=== PATIENT | female | born 1945 | race African-American/Black ===

== ENCOUNTER 2018-10-10 06:49 | Emergency (ER) | payer BC ==
[~2018-10-10] VITALS: Ht 160 cm; Wt 57.2 kg
[2018-10-10 06:57] VITALS: BP 149/86
[2018-10-10] MEDS: KETOROLAC 60 MG/2 ML VIAL IM ONE (08:40)
[2018-10-10 08:51] VITALS: BP 140/84
== END 2018-10-10 08:51 | disposition home or self-care (01) ==
LOC: MED 06:49
DX: S16.1XXA Strain of muscle, fascia and tendon at neck level, initial encounter (principal); M54.12 Radiculopathy, cervical region; R03.0 Elevated blood-pressure reading, without diagnosis of hypertension; F17.210 Nicotine dependence, cigarettes, uncomplicated; X58.XXXA Exposure to other specified factors, initial encounter; Y93.89 Activity, other specified; Y92.89 Other specified places as the place of occurrence of the external cause; Y99.8 Other external cause status
CPT/HCPCS: 72040; 73030; 93005; 96372; 99284; J1885

== ENCOUNTER 2019-08-17 04:37 | Inpatient (IN) | payer BC ==
[~2019-08-17] VITALS: Ht 160 cm; Wt 61.2 kg
[2019-08-17 04:49] VITALS: BP 116/67
--- NOTE | 2019-08-17 04:49 | NUR ---
PT TAKEN TO BED 06 VIA WC.
--- NOTE | 2019-08-17 05:00 | NUR ---
PT CAME TO ER C/O LOWER ABDOMINAL PAIN X 3 DAYS. PT PAIN LEVEL 10/10, SHARP CONSTANT PAIN THAT RADIATES TO THE RIGHT SIDE OF HER BACK. BOWEL SOUNDS ACTIVE X 4 QUADRANTS. ABDOMEN IS FIRM AND TENDER TO TOUCH. PT DENIES N/V/D. LAST BM 08/15/19. ALLERGIES: PENICILLIN MED HX: NONE. SAFETY MEASURES IN PLACE. WAITING FOR ERMD TO EVALUATE PT.
[2019-08-17] MEDS ORDERED: MORPHINE SULFATE 4 MG/ML SYR IVP ONE (05:20)
[2019-08-17 05:55] LABS: HEMOGLOBIN 13.7 g/dL (12.0-16.0); MEAN CORPUSCULAR HEMOGLOBIN 26 pg (27-31); MEAN CORPUSCULAR HGB CONC 32 g/dL (33-37); MEAN CORPUSCULAR VOLUME 82.4 fL (80-94); PLATELET COUNT (AUTO) 140 K/uL (140-450); RED BLOOD CELL COUNT(AUTO) 5.21 MIL/uL (4.20-5.40); RED CELL DISTRIBUTION WIDTH 15.9 % (11.6-13.7); WHITE BLOOD COUNT (AUTO) 22.4 K/uL (4.8-10.8)
[2019-08-17 05:58] LABS: ANION GAP 15.5 (8-16); CARBON DIOXIDE 25.4 mmol/L (21-32); CHLORIDE 98 mmol/L (98-107); CREATININE 1.3 mg/dL (0.6-1.3); GLUCOSE 126 mg/dL (74-106); POTASSIUM 3.9 mmol/L (3.5-5.1); SODIUM SERUM 135 mmol/L (136-145); UREA NITROGEN, BLOOD 34 mg/dL (7-18)
[2019-08-17 06:04] LABS: ALBUMIN 3.1 g/dL (3.4-5.0); ASPARTATE AMINOTRANSFERASE 17 U/L (15-37); LIPASE 42 U/L (73-393)
--- NOTE | 2019-08-17 06:06 | NUR ---
PT RETURNED FROM CT VIA WHEELCHAIR
[2019-08-17 06:16] LABS: LYMPHOCYTES % (MANUAL) 6 % (20-46); MONOCYTES % (MANUAL) 5 % (5-12)
--- NOTE | 2019-08-17 06:40 | NUR ---
PT AMBULATED TO RESTROOM
--- NOTE | 2019-08-17 06:56 | NUR ---
PT UNABLE TO PROVIDE URINE AT THIS TIME. ERMD NOTIFIED.
--- NOTE | 2019-08-17 07:27 | NUR ---
Deirdre montana in [facility] - 08/17/19 at 0728 by MICHELLE TRANSFER OF CARE AND REPORT GIVEN TO ISAURO WYLIE
--- NOTE | 2019-08-17 07:28 | NUR ---
TRANSFER OF CARE AND REPORT GIVEN TO ISAURO WYLIE
--- NOTE | 2019-08-17 07:30 | NUR ---
REPORT RECEIVED FROM ISAURO IGLESIAS FOR TRANSFER OF CARE
--- NOTE | 2019-08-17 07:39 | NUR ---
Dr. Motley evaluating patient at bedside.
[2019-08-17] MEDS ORDERED: NACL 0.9% 1,000 ML IV ONE ×2 (07:45→09:10)
[2019-08-17] MEDS ORDERED: VANCOMYCIN PER PHARMACY MC PRN (08:10)
[2019-08-17] MEDS ORDERED: CEFEPIME 2,000 MG in DEXTROSE 5% 100 ML IV ONE (08:10)
[2019-08-17] MEDS ORDERED: VANCOMYCIN 1GM/DEXT 5% PREMIX 200 ML IV ONE (08:10)
--- NOTE | 2019-08-17 08:12 | NUR ---
pt unable to urinate at this time
[2019-08-17] MEDS ORDERED: CEFEPIME 2,000 MG VIAL IV ONE (08:15)
[2019-08-17 08:34] LABS: APPEARANCE,URINE CLEAR (CLEAR); BILIRUBIN,URINE 2+ (NEGATIVE); BLOOD, URINE TRACE-I (NEGATIVE); COLOR,URINE ORANGE (YELLOW); LEUKOCYTE ESTERASE ,URINE NEGATIVE (NEGATIVE); NITRITE, URINE NEGATIVE (NEGATIVE); UGLUCOSE NEGATIVE (NEGATIVE)
[2019-08-17 08:56] LABS: RBC,URINE 0-5 /HPF (0-5); WBC,URINE 0-5 /HPF (0-5)
[2019-08-17] MEDS ORDERED: metroNIDAZOLE 500 MG/NS PREMIX 100 ML IV ONE (09:10)
--- NOTE | 2019-08-17 09:15 | NUR ---
CALLED PHARMACY FOR VANCOMYCIN, SHE WILL CHANGE IT TO THE VIAL FORM SO WE CAN PULL IT FROM OUR PYX[facility]
[2019-08-17] MEDS ORDERED: VANCOMYCIN 1,000 MG in DEXTROSE 5% 250 ML IV SCH (09:19)
[2019-08-17] MEDS ORDERED: VANCOMYCIN 1,000 MG VIAL ONE (09:41)
--- NOTE | 2019-08-17 09:55 | NUR ---
Dr. Marcial evaluating patient at bedside.
[2019-08-17] MEDS ORDERED: BUPIVACAINE-MPF/EPI 0.25% 30 ML VIAL INJ ONE (10:00)
--- NOTE | 2019-08-17 10:21 | NUR ---
or scrub tech at bedside.
--- NOTE | 2019-08-17 10:22 | NUR ---
CALLED RT FOR EKG
[2019-08-17] MEDS ORDERED: GLYCOPYRROLATE 0.2 MG/ML VIAL ONE (10:28)
[2019-08-17] MEDS ORDERED: NEOSTIGMINE 1:1000 10 MG/10 ML VIAL ONE (10:28)
[2019-08-17] MEDS ORDERED: SUCCINYLCHOLINE CHLORIDE 200 MG/10 ML VIAL IVP ONE (10:28)
[2019-08-17] MEDS ORDERED: KETOROLAC 30 MG/ML VIAL ONE (10:28)
[2019-08-17] MEDS ORDERED: LIDOCAINE 2% 100 MG/5 ML SYR IVP ONE (10:28)
[2019-08-17] MEDS ORDERED: PROPOFOL 200 MG/20 ML VIAL IV ONE (10:28)
[2019-08-17] MEDS ORDERED: ONDANSETRON 4 MG/2 ML VIAL ONE (10:28)
[2019-08-17] MEDS ORDERED: ePHEDrine 50 MG/ML VIAL ONE (10:28)
[2019-08-17] MEDS ORDERED: DESFLURANE 240 ML BTL INH ONE (10:28)
[2019-08-17] MEDS ORDERED: ROCURONIUM 50 MG/5 ML VIAL IV ONE (10:28)
[2019-08-17] MEDS ORDERED: DEXAMETHASONE 4 MG/ML VIAL ONE (10:28)
--- NOTE | 2019-08-17 10:28 | NUR ---
PT TAKEN TO O.R. BY SURGICAL TEAM
[2019-08-17] MEDS ORDERED: fentaNYL 0.05 MG/ML VIAL ONE (10:29)
[2019-08-17] MEDS ORDERED: ACETAMINOPHEN 325 MG TAB PO PRN (10:35)
[2019-08-17] MEDS ORDERED: HYDROcodone/APAP 5/325 MG 1 TAB TAB PO PRN (10:35)
[2019-08-17] MEDS ORDERED: ONDANSETRON 4 MG/2 ML VIAL IM/IVP PRN (10:35)
[2019-08-17] MEDS ORDERED: DOCUSATE SODIUM 100 MG GELCAP PO PRN (10:35)
--- NOTE | 2019-08-17 10:37 | NUR ---
Patient will be admitted to care of DR. ANN. Admited to O.R. AT THIS TIME. PT Will go to room 127-A POST OP. Belongings list completed. Report to CHIP TESTER.
[2019-08-17] MEDS ORDERED: ONDANSETRON 4 MG/2 ML VIAL IVP PRN (11:10)
[2019-08-17] MEDS ORDERED: HYDROmorphone 1 MG/ML AMP IVP PRN (11:10)
[2019-08-17 11:52] LABS: BARBITURATE, URINE NEG. ng/ml (NEG <=200); BENZODIAZEPINE, URINE NEG. ng/mL (NEG <=200); CANNABINOID, URINE NEG. ng/mL (NEG <=50); COCAINE, URINE NEG. ng/mL (NEG <=300); OPIATE, URINE POS. ng/mL (NEG <=2000); PHENCYCLIDINE SCREEN,URINE NEG. ng/mL (NEG <=25)
[2019-08-17 12:00] LABS: PROTHROMBIN TIME 12.1 secs (10.8-13.4)
[2019-08-17 12:08] LABS: CHOL/HDL RATIO 2.7 (1-4.5); MAGNESIUM 2.2 mg/dL (1.8-2.4); PHOSPHORUS 2.9 mg/dL (2.5-4.9); THYROID STIMULATING HORMONE 0.99 uIU/mL (0.34-3.74)
[2019-08-17] MEDS ORDERED: ALBUTEROL SULFATE/IPRATROPIU 3 ML SOL IH PRN (12:40)
--- NOTE | 2019-08-17 12:49 | NUR ---
PT ARRIVED FROM PACU, PT SLEEPY BUT AROUSABLE, RESP EVEN UNLABORED, SKIN WARM DRY COLOR WNL, PT DENIES PAIN, ABD SURGICAL WOUND COVERED WITH BULKY DRESSING, CLEAN DRY INTACT, PT ORIENTED TO ROOM AND FLOOR, CALL DOAN WITHIN REACH, SIDE RAILS UP, IVF INFUSING WELL, SITE WNL, WILL CONTINUE TO MOTNIOR.
[2019-08-17] MEDS: metroNIDAZOLE 500 MG/NS PREMIX 100 ML IV SCH ×2 (14:29→20:30)
[2019-08-17] MEDS: NACL 0.9% 1,000 ML IV SCH ×2 (14:29→20:30)
--- NOTE | 2019-08-17 14:35 | NUR ---
PT SLEEPING QUIETLY, AROUSES EASILY, PT DENIES PAIN, FALLS BACK TO SLEEP. CALL DOAN WITHIN REACH, WILL CONTINUE TO MONTIOR.
[2019-08-17 16:00] VITALS: BP 108/60
--- NOTE | 2019-08-17 16:29 | NUR ---
PT SITTING UP LOOKING AT PHONE, STATES ABD WITH SLIGHT PAIN BUT TOLERABLE, DECLINED OFFER FOR PAIN MED.
--- NOTE | 2019-08-17 17:22 | NUR ---
PT SITTING UP TALKING WITH VISITOR, PT AWARE OF NPO, PT DENIES PAIN, CALL DOAN AT BEDSIDE, WILL CONTINUE TO MONTIOR
--- NOTE | 2019-08-17 19:29 | NUR ---
REPORT GIVEN TO CONTAINER PACKER OPERATOR NURSE, PT IN STABLE CONDITION
--- NOTE | 2019-08-17 19:30 | NUR ---
RECEIVED FROM AM RN IN BED WITH DAUGHTER AT BEDSIDE VISITING. PT. WITH S/P EXPLORE LAP 08/17/19 THIS A.M. PT. AWAKE AND ALERT. ORIENTED X 4. VERBALIZING WELL IN ITALIAN WITH ME. DRESSING TO LOWER ABDOMEN INTACT AND NO BLEEDING NOTED. CARE PLANS FOR THE NIGHT DISCUSSED WITH THEM. CALL LIGHT WITH IN REACH AND ENCOURAGED TO USE IT FOR ANY HELP SHE MAY NEED OR IF IN PAIN. " OK" DENIES PAIN AT THIS TIME.
--- NOTE | 2019-08-17 20:33 | NUR ---
IV ABT FLAGYL ADMINISTERED AND INFUSING AT THIS TIME. REFUSING PAIN RELIEVER AT THIS TIME. STATED" LATER" ENCOURAGED TO CALL IF WITH PAIN. "OK" A/O X 4.
[2019-08-18 00:29] VITALS: BP 110/60
[2019-08-18] MEDS: MORPHINE SULFATE 2 MG/ML SYR IVP PRN ×3 (00:34→21:22)
--- NOTE | 2019-08-18 00:34 | NUR ---
MEDICATED WITH MORPHINE IVP REQUESTED RT C/O SURGICAL PAIN. ABLE TO VERBALIZE NEEDS WELL. A/O X 4. ROM X 4. CALL LIGHT WITH IN REACH.
[2019-08-18] MEDS: metroNIDAZOLE 500 MG/NS PREMIX 100 ML IV SCH ×3 (05:20→21:13)
[2019-08-18] MEDS: NACL 0.9% 1,000 ML IV SCH ×2 (05:21→21:14)
--- NOTE | 2019-08-18 05:34 | NUR ---
SLEPT WELL THIS SHIFT. PT. AWAKE AT THIS TIME AND ENCOURAGED TO CONTINUE WITH BREATHING EXERCISE. PT. TALKING WITH NEIGHBORS' FAMILY MEMBER.
--- NOTE | 2019-08-18 07:25 | NUR ---
BEDSIDE REPORT FROM MAINTAINER SEWER AND WATERWORKS NURSE, PT SLEEPING QUIETLY, RESP EVEN UNLABORED, SKIN WARM DRY COLOR WNL, PT STATES PAIN TOLERABLE AT THIS TIME, ALL SAFETY MEASURES IN PLACE, NO IMMEDIATE NEEDS VOICED, PLAN OF CARE REVIEWED, WILL CONTINUE TO MONITOR.
[2019-08-18 07:32] LABS: BASOPHILS % (AUTO) 0.1 % (0.0-2.0); HEMATOCRIT 34.8 % (36-48); HEMOGLOBIN 11.2 g/dL (12.0-16.0); LYMPHOCYTES # (AUTO) 0.6 K/uL (2.5-16.5); LYMPHOCYTES % (AUTO) 4.1 % (20.5-51.1); MEAN CORPUSCULAR HEMOGLOBIN 27 pg (27-31); MEAN CORPUSCULAR HGB CONC 32 g/dL (33-37); MEAN CORPUSCULAR VOLUME 82.5 fL (80-94); MONOCYTES # (AUTO) 0.9 K/uL (0.8-1.0); MONOCYTES % (AUTO) 6.6 % (1.7-9.3); NEUTROPHILS # (AUTO) 12.3 K/uL (1.8-7.7); NEUTROPHILS % (AUTO) 89.2 % (42.2-75.2); PLATELET COUNT (AUTO) 140 K/uL (140-450); RED BLOOD CELL COUNT(AUTO) 4.22 MIL/uL (4.20-5.40); WHITE BLOOD COUNT (AUTO) 13.7 K/uL (4.8-10.8)
[2019-08-18 07:37] LABS: ANION GAP 11.9 (8-16); CARBON DIOXIDE 26.2 mmol/L (21-32); CHLORIDE 101 mmol/L (98-107); GLUCOSE 111 mg/dL (74-106); POTASSIUM 4.1 mmol/L (3.5-5.1); SODIUM SERUM 135 mmol/L (136-145); UREA NITROGEN, BLOOD 34 mg/dL (7-18)
[2019-08-18 07:58] LABS: MAGNESIUM 2.2 mg/dL (1.8-2.4); PHOSPHORUS 2.5 mg/dL (2.5-4.9)
[2019-08-18 08:00] VITALS: BP 126/71
--- NOTE | 2019-08-18 08:22 | NUR ---
PATIENT HAS BEEN SCREENED AND CATEGORIZED LOW NUTRITION RISK. PATIENT WILL BE SEEN WITHIN 7 DAYS OF ADMISSION. 08/23/[address]
[2019-08-18] MEDS: LACTOBACILLUS RHAMNOSUS GG 1 EACH CAP PO SCH (10:23)
[2019-08-18] MEDS: cefTRIAXone 2,000 MG in DEXTROSE 5% 100 ML IV SCH (10:23)
--- NOTE | 2019-08-18 12:30 | NUR ---
PT UP OUT OF BED WITH MINIMAL ASSIST, AMBULATE AROUND THE HALLWAY WHIT SLOW STEADY GAIT, PT ELIDA WELL.
--- NOTE | 2019-08-18 14:05 | NUR ---
NEW IV STARTED TO LEFT FA 22G, PT ELIDA WELL.
[2019-08-18 16:00] VITALS: BP 128/80
--- NOTE | 2019-08-18 16:08 | NUR ---
PT SITTING UP RESTING QUETLLY, PT STATES SHE FEELS LIKE "THE LIQUIDS MAY COME UP"/VOMIT, OFFERED ZOFRAN, PT DECLINES, PT ENCOURAGED TO SLOW DOWN ON PO INTAKE, AND ENCOURAGED TO AMBULATE AGAIN TODAY, PT VERBALIZED UNDERSTANDING, VISITOR AT BEDSIDE, WILL CONTINUE TO MONITR
--- NOTE | 2019-08-18 19:20 | NUR ---
BEDSIDE REPORT GIVEN TO SEWAGE PLANT OPERATOR NURSE, PT IN BED RESTING QUIETLY, DENIES PAIN.
--- NOTE | 2019-08-18 19:25 | NUR ---
RECEIVED PT ON BED, AAOX4, ABLE TO MAKE NEEDS KNOWN, ABDOMINAL DRESSING DRY AND INTACT, IVF INFUSING WELL, PT FEELING BLOATED, NOT PASSING GAS YET, HYPOACTIVE BOWEL SOUNDS, ABDOMEN SLIGHTLY FIRM, NO N/V NOTED, PLAN OF CARE DISCUSSED, SAFETY MEASURES IN PLACE, CALL LIGHT WITHIN REACH.
--- NOTE | 2019-08-18 21:00 | NUR ---
PER PT HAD EPISODE OF VOMITING DARK BROWN VOMITUS APPROXIMATELY 3 CUPS, STATED FELT BETTER AFTERWARDS, ABDOMEN SLIGHTLY SOFT NOW, DR EDMONDSON MADE AWARE, WILL SEE PT.
--- NOTE | 2019-08-18 22:00 | NUR ---
RECEIVED BEDSIDE REPORT FROM EMPLOYMENT OFFICER FLAVIA, FOR PT'S CONTINUITY OF CARE. PT IS LYING DOWN AWAKE, DENIES PAIN AT THIS TIME. FALL PRECAUTION IN PLACE. REMINDED PT TO USE CALL LIGHT WHEN NEEDED. PT VERBALIZED UNDERSTANDING. WILL CONTINUE TO MONITOR PT.
[2019-08-19] VITALS: BP 130/71
--- NOTE | 2019-08-19 | NUR ---
VS CHECKED AND CHARTED. PT IS AWAKE AND DENIES ANY PAIN AT THIS TIME. WILL CONTINUE TO MONITOR PT.
--- NOTE | 2019-08-19 02:50 | NUR ---
MADE ROUNDS. PT LYING DOWN APPEARS TO BE ASLEEP, WITH NO SIGNS OF DISTRESS. WILL CONTINUE TO MONITOR PT.
[2019-08-19] MEDS: metroNIDAZOLE 500 MG/NS PREMIX 100 ML IV SCH ×2 (04:51→12:36)
[2019-08-19] MEDS: NACL 0.9% 1,000 ML IV SCH (04:51)
--- NOTE | 2019-08-19 04:51 | NUR ---
ADMINISTERED IVPB ABX AND IV FLUID ORDERED. PT REPORTED SHE HAD ANOTHER EMESIS, AND FEELS WEAK AND SLEEPY. PT TEACHING GIVEN RE: HYDRATION TOLERATED, AND REST. PT VERBALIZED UNDERSTANDING. WILL CONTINUE TO MONITOR PT.
--- NOTE | 2019-08-19 06:00 | NUR ---
PT LYING DOWN, APPEARS TO BE ASLEEP WITH NO SIGNS OF DISTRESS. WILL ENDORSE TO AM SHIFT RN FOR PT'S CONTINUITY OF CARE.
--- NOTE | 2019-08-19 06:20 | NUR ---
RECEIVED BEDSIDE REPORT FROM STOCK PLAN ADMINISTRATOR NURSE FOR CONTINUITY OF CARE. PATIENT IS RESTING ON BED. SAFETY MEASURES IN PLACE. BED IN LOW POSITION AND CALL LIGHT WITHIN REACH.
[2019-08-19] MEDS ORDERED: BISACODYL 10 MG SUPP RC SCH (06:52)
--- NOTE | 2019-08-19 07:30 | NUR ---
ENDORSED PATIENT AT BEDSIDE TO DAY SHIFT NURSE FOR CONTINUITY OF CARE, PATIENT IS RESTING ON BED. AROUSABLE TO VOICE. NO SIGNS OF DISTRESS NOTED. PATIENT IS IN STABLE CONDITION. SAFETY MEASURES IN PLACE.
--- NOTE | 2019-08-19 07:31 | NUR ---
RECEIVED ENDORSEMENT FROM PLANT OPERATOR CONTROL ROOM OPERATOR NURSE. PATIENT IS AAOX4, GABONESE SPEAKING. RESPIRATIONS ARE EVEN AND UNLABORED ON ROOM AIR. PATIENT DENIES ANY PAIN AT THIS TIME. LEFT FA 22G IV INTACT, PATENT, AND INFUSING IVF. PLAN OF CARE WAS REVIEWED WITH PATIENT, PATIENT VERBALIZED UNDERSTANDING. SAFETY MEASURES IN PLACE, CALL LIGHT WITHIN REACH.
[2019-08-19 08:00] VITALS: BP 144/69
[2019-08-19 08:01] LABS: EOSINOPHILS % (AUTO) 0.1 % (0.0-4.0); HEMATOCRIT 38.1 % (36-48); HEMOGLOBIN 12.1 g/dL (12.0-16.0); LYMPHOCYTES # (AUTO) 0.7 K/uL (2.5-16.5); LYMPHOCYTES % (AUTO) 4.7 % (20.5-51.1); MEAN CORPUSCULAR HEMOGLOBIN 26 pg (27-31); MEAN CORPUSCULAR HGB CONC 32 g/dL (33-37); MEAN CORPUSCULAR VOLUME 82.7 fL (80-94); MONOCYTES # (AUTO) 1.1 K/uL (0.8-1.0); MONOCYTES % (AUTO) 7.5 % (1.7-9.3); NEUTROPHILS # (AUTO) 12.9 K/uL (1.8-7.7); NEUTROPHILS % (AUTO) 87.7 % (42.2-75.2); PLATELET COUNT (AUTO) 200 K/uL (140-450); RED CELL DISTRIBUTION WIDTH 16.1 % (11.6-13.7); WHITE BLOOD COUNT (AUTO) 14.8 K/uL (4.8-10.8)
[2019-08-19] MEDS: LACTOBACILLUS RHAMNOSUS GG 1 EACH CAP PO SCH (08:41)
[2019-08-19] MEDS: cefTRIAXone 2,000 MG in DEXTROSE 5% 100 ML IV SCH (08:42)
--- NOTE | 2019-08-19 08:42 | NUR ---
ADMINISTERED SCHEDULED MEDICATIONS.PATIENT TOLERATED WELL. NO OTHER NEEDS AT THIS TIME.
[2019-08-19] MEDS: MORPHINE SULFATE 2 MG/ML SYR IVP PRN ×2 (09:20→23:12)
[2019-08-19 09:25] LABS: MAGNESIUM 2.2 mg/dL (1.8-2.4)
--- NOTE | 2019-08-19 09:53 | NUR ---
INSERTED NG TUBE. ADMINISTERED PAIN MEDICATION PRIOR. PATIENT TOLERATED WELL. PENDING PLACEMENT VERIFICATION TO CONNECT TO SUCTION. NO OTHER NEEDS AT TIME. WILL CONTINUE TO MONITOR.
[2019-08-19 10:07] LABS: CHLORIDE 102 mmol/L (98-107); CREATININE 0.7 mg/dL (0.6-1.3); GLUCOSE 109 mg/dL (74-106); POTASSIUM 3.4 mmol/L (3.5-5.1); SODIUM SERUM 138 mmol/L (136-145); UREA NITROGEN, BLOOD 25 mg/dL (7-18)
[2019-08-19 10:25] LABS: ANION GAP 14.1 (8-16); CARBON DIOXIDE 25.3 mmol/L (21-32)
--- NOTE | 2019-08-19 11:45 | NUR ---
ADVANCED NG TUBE. PENDING CHEST XRAY TO CONFIRM PLACEMENT.
[2019-08-19] MEDS ORDERED: MORPHINE SULFATE 2 MG/ML SYR IVP SCH (12:00)
--- NOTE | 2019-08-19 13:59 | NUR ---
PATIENT SLEEPING, VISIBLE RISE AND FALL OF CHEST.NO OTHER NEEDS AT THIS TIME. WILL CONTINUE TO MONITOR.
[2019-08-19] MEDS: CLINDAMYCIN 900 MG in DEXTROSE 5% 100 ML IV SCH ×2 (15:45→22:49)
--- NOTE | 2019-08-19 15:45 | NUR ---
ADMINISTERED SCHEDULED MEDICATIONS. PATIENT TOLERATED WELL. DENIES ANY PAIN. NO OTHER NEEDS AT THIS TIME.
[2019-08-19 16:00] VITALS: BP 153/72
--- NOTE | 2019-08-19 17:48 | NUR ---
PATIENT RESTING IN BED. DENIES ANY PAIN. NO OTHER NEEDS AT THIS TIME. WILL CONTINUE TO MONITOR.
--- NOTE | 2019-08-19 19:27 | NUR ---
RECIEVED PT . AAOX4 , NID , IV SITE INTACT AND PATENT , WITH NGT TUBE , NPO , PLAN OF CARE DISCUSSED AND VERBALIZE UNDERSTANDING . ON SAFETY / FALL PRECAUTION PROTOCOL , CALL LIGHT WITHIN REACH . WITH BEARABLE PAIN AT THIS TIME , WITH SURGICAL DRESSING DRY AND INTACT . WILL CONT. TO MONITOR.
--- NOTE | 2019-08-19 19:27 | NUR ---
ENDORSED PATIENT TO PELLETIZER NURSE FOR CONTINUITY OF CARE. PATIENT IS STABLE AT THIS TIME.
--- NOTE | 2019-08-19 20:30 | NUR ---
NGT ACCIDENTALLY DISCONNECTED BY THE PT. - RE INSERTED - PROCEDURE TOLERATED WELL , WILL CONT, TO MONITOR.
--- NOTE | 2019-08-19 23:00 | NUR ---
RADIOLOGIST SAID KEEP THE NGT CLAMPED FOR THE WHOLE NIGHT AND KEEP THE PT ON NPO UNTIL THE SERIES OF X RAY ABD.- WILL BE DONE JESSICA. MORNING.- DONT ATTACH TO SUCTION.
[2019-08-20] VITALS: BP 140/80
[2019-08-20] MEDS: CLINDAMYCIN 900 MG in DEXTROSE 5% 100 ML IV SCH ×3 (06:04→22:59)
[2019-08-20] MEDS: NACL 0.9% 1,000 ML IV SCH (06:05)
--- NOTE | 2019-08-20 06:30 | NUR ---
DR GLOVER CALL HE SAID UNCLAMP THE NGT , THEN ASPIRATE IF THE RETURN IS LESS THAN 50ML -REMOVE THE NGT . KEEP PT.NPO .CANCEL THE KUB X RAY. T.O BY DR GONZALES.
--- NOTE | 2019-08-20 06:45 | NUR ---
UNCLAMPED THE NGT -ASPIRATED 90ML RETURN - KEEP NGT IN.
--- NOTE | 2019-08-20 07:28 | NUR ---
ENDORSED TO AM SHIFT FOR CONT. OF CARE . THE NGT IS STILL IN BECAUSE THE ASPIRATION RETURN IS 90ML.
--- NOTE | 2019-08-20 07:30 | NUR ---
RECEIVED PT FROM NIGHT NURSE. PT AAO X4. AMBULATED TO BATHROOM DUE TO BOWEL MOVEMENT. PT DENIES PAIN. SKIN WARM AND DRY WITH SURGICAL WOUND POST APPENDECTOMY. NPO STATUS. IV IN PLACE L FA 22G INFUSING PER ORDER. RESPIRATIONS EVEN AND UNLABORED. BED IN LOW POSITION, SAFETY MEASURES IN PLACE. CALL LIGHT WITHIN REACH. WILL CONTINUE TO MONITOR.
[2019-08-20 08:00] VITALS: BP 163/76
[2019-08-20] MEDS: LACTOBACILLUS RHAMNOSUS GG 1 EACH CAP PO SCH (09:00)
--- NOTE | 2019-08-20 10:05 | NUR ---
MEDICATIONS ADMINISTERED PER ORDER. PT TOLERATED WELL AND IN NO DISTRESS. WILL CONTINUE TO MONITOR. SAFETY MEASURES IN PLACE.
[2019-08-20] MEDS: cefTRIAXone 2,000 MG in DEXTROSE 5% 100 ML IV SCH (10:15)
[2019-08-20 11:38] LABS: EOSINOPHILS % (AUTO) 0.2 % (0.0-4.0); HEMATOCRIT 36.8 % (36-48); HEMOGLOBIN 11.8 g/dL (12.0-16.0); LYMPHOCYTES # (AUTO) 0.8 K/uL (2.5-16.5); LYMPHOCYTES % (AUTO) 6.3 % (20.5-51.1); MEAN CORPUSCULAR HEMOGLOBIN 26 pg (27-31); MEAN CORPUSCULAR HGB CONC 32 g/dL (33-37); MEAN CORPUSCULAR VOLUME 82.6 fL (80-94); MONOCYTES # (AUTO) 1.3 K/uL (0.8-1.0); MONOCYTES % (AUTO) 9.5 % (1.7-9.3); NEUTROPHILS # (AUTO) 11.2 K/uL (1.8-7.7); PLATELET COUNT (AUTO) 231 K/uL (140-450); RED BLOOD CELL COUNT(AUTO) 4.46 MIL/uL (4.20-5.40); RED CELL DISTRIBUTION WIDTH 16.3 % (11.6-13.7); WHITE BLOOD COUNT (AUTO) 13.4 K/uL (4.8-10.8)
--- NOTE | 2019-08-20 11:43 | NUR ---
NG RESIDUAL CHECK 70ML. WILL CONTINUE TO MONITOR.
[2019-08-20 12:13] LABS: CHLORIDE 100 mmol/L (98-107); CREATININE 0.8 mg/dL (0.6-1.3); GLUCOSE 111 mg/dL (74-106); SODIUM SERUM 141 mmol/L (136-145); UREA NITROGEN, BLOOD 18 mg/dL (7-18)
[2019-08-20 12:16] LABS: MAGNESIUM 1.8 mg/dL (1.8-2.4); PHOSPHORUS 1.7 mg/dL (2.5-4.9)
[2019-08-20 16:00] VITALS: BP 150/69
--- NOTE | 2019-08-20 16:45 | NUR ---
MEDICATIONS GIVEN PER ORDER. PT TOLERATED WELL AND SHOWS NO SIGNS OF DISTRESS. SAFETY MEASURES IN PLACE. WILL CONTINUE TO MONITOR.
[2019-08-20] MEDS ORDERED: KETOROLAC 30 MG/ML VIAL IM PRN (17:30)
[2019-08-20] MEDS ORDERED: POTASSIUM CHLORIDE 10 MEQ TABER PO SCH (18:00)
--- NOTE | 2019-08-20 19:26 | NUR ---
PT PASSED ON TO NIGHT NURSE IN STABLE CONDITION FOR CONTINUITY OF CARE.
--- NOTE | 2019-08-20 19:27 | NUR ---
REPORT RECEIVED FROM AM NURSE AT BEDSIDE. PT IN STABLE CONDITION. AAOX4. INTRODUCED SELF TO PT. BOARD UPDATED. NO COMPLAINTS OF PAIN. NO SOB. AFEBRILE. PT IS AMBULATORY. PT HAS NG TUBE. IV SITE L AC 22G RUNNING NS@50ML/HR PATENT AND INTACT. SKIN WARM, DRY, AND NOT INTACT DUE TO AN OPEN APPENDECTOMY. MD WILL BE HERE TO CHANGE DRESSING TOMORROW. BED LOCKED IN LOW POSITION. CALL DOAN WITHIN REACH. SAFETY PRECAUTION IN PLACE. ALL NEEDS MET AT THIS TIME.
--- NOTE | 2019-08-20 21:45 | NUR ---
PT SLEEPING COMFORTABLY IN BED BUT AROUSABLE. NO S/S OF DISTRESS NOTED. WILL CONTINUE TO MONITOR.
[2019-08-20] MEDS ORDERED: CLINDAMYCIN 900 MG/6 ML VIAL IV ONE (22:48)
--- NOTE | 2019-08-20 22:59 | NUR ---
CLEOCIN HUNG AND RUNNING. PT TOLERATING WELL.
--- NOTE | 2019-08-21 00:30 | NUR ---
PT SLEEPING COMFORTABLY BUT AROUSABLE. NO S/S OF DISTRESS NOTED. NO COMPLAINTS OF PAIN. NO SOB. AFEBRILE. WILL CONTINUE TO MONITOR.
[2019-08-21 01:00] VITALS: BP 157/71
--- NOTE | 2019-08-21 02:45 | NUR ---
PT SLEEPING COMFORTABLY BUT AROUSABLE. NO S/S OF DISTRESS NOTED. RESPIRATIONS EVEN, UNLABORED, AND WNL. WILL CONTINUE TO MONITOR.
--- NOTE | 2019-08-21 04:40 | NUR ---
ASSISTED PATIENT TO THE RESTROOM. NO S/S OF DISTRESS NOTED. NO COMPLAINTS OF PAIN. NO SOB. AFEBRILE. WILL CONTINUE TO MONITOR.
[2019-08-21] MEDS ORDERED: CLINDAMYCIN 900 MG/6 ML VIAL IV ONE (06:13)
[2019-08-21] MEDS: CLINDAMYCIN 900 MG in DEXTROSE 5% 100 ML IV SCH ×3 (06:18→22:15)
--- NOTE | 2019-08-21 06:18 | NUR ---
CLEOCIN HUNG AND RUNNING. PT TOLERATING WELL.
[2019-08-21] MEDS: NACL 0.9% 1,000 ML IV SCH (06:21)
--- NOTE | 2019-08-21 07:25 | NUR ---
RECEIVED REPORT FROM SPORTS UMPIRE NURSE. PATIENT IS SLEEPING. WILL CONTINUE WITH CURRENT PLAN OF CARE.
[2019-08-21 08:00] VITALS: BP 144/69
--- NOTE | 2019-08-21 09:00 | NUR ---
ADMINISTERED MORNING MEDICATION AND HUNG IVPB ABX. PATIENT TOLERATED WELL
[2019-08-21] MEDS: cefTRIAXone 2,000 MG in DEXTROSE 5% 100 ML IV SCH (09:03)
[2019-08-21] MEDS: LACTOBACILLUS RHAMNOSUS GG 1 EACH CAP PO SCH (09:04)
--- NOTE | 2019-08-21 10:00 | NUR ---
ASSISTED PATIENT WITH AMBULATION TO THE RESTROOM. PATIENT TOLERATED WELL, NO SOB, NO SIGNS OF RESP DISTRESS
--- NOTE | 2019-08-21 12:00 | NUR ---
ATTACHED NG TUBE TO BOOGIE CATHETER FOR GRAVITY SUCTION PER MD ORDER. CERTIFIED RESIDENTIAL MEDICATION AIDE HAD AN OUTPUT OF 400ML. WILL CONTINUE TO MONITOR OUTPUT ON CURRENT SHIFT.
[2019-08-21 12:02] LABS: HEMATOCRIT 35.5 % (36-48); HEMOGLOBIN 11.5 g/dL (12.0-16.0); MEAN CORPUSCULAR HEMOGLOBIN 26 pg (27-31); MEAN CORPUSCULAR HGB CONC 33 g/dL (33-37); PLATELET COUNT (AUTO) 256 K/uL (140-450); RED BLOOD CELL COUNT(AUTO) 4.39 MIL/uL (4.20-5.40); RED CELL DISTRIBUTION WIDTH 15.5 % (11.6-13.7)
[2019-08-21] MEDS ORDERED: ALUMINUM HYD/MAG/SIMETHICONE 30 ML UDC PO PRN (12:05)
[2019-08-21] MEDS ORDERED: METOCLOPRAMIDE 10 MG/2 ML INJ VIAL IVP PRN (12:05)
[2019-08-21 12:29] LABS: ANION GAP 12.5 (8-16); CARBON DIOXIDE 31.3 mmol/L (21-32); CHLORIDE 99 mmol/L (98-107); CREATININE 0.8 mg/dL (0.6-1.3); GLUCOSE 98 mg/dL (74-106); SODIUM SERUM 140 mmol/L (136-145); UREA NITROGEN, BLOOD 18 mg/dL (7-18)
[2019-08-21 12:49] LABS: POTASSIUM 2.8 mmol/L (3.5-5.1)
--- NOTE | 2019-08-21 13:00 | NUR ---
WAS NOTIFIED BY LAB OF POTASSIUM 2.8. DR JUAREZ MADE AWARE. ORDERS TO BE RECEIVED
[2019-08-21 13:15] LABS: BASOPHILS % (MANUAL) 0 % (0-2); EOSINOPHILS % (MANUAL) 0 % (0-4); LYMPHOCYTES % (MANUAL) 12 % (20-46); MONOCYTES % (MANUAL) 15 % (5-12)
[2019-08-21] MEDS ORDERED: POTASSIUM CHLORIDE 20% 40 MEQ/15 ML UDC PO SCH (13:30)
[2019-08-21 13:52] LABS: MAGNESIUM 1.7 mg/dL (1.8-2.4); PHOSPHORUS 2.1 mg/dL (2.5-4.9)
[2019-08-21] MEDS ORDERED: POTASSIUM CHLORIDE 40 MEQ, LIDOCAINE 1% 25 MG in NACL 0.9% 250 ML IV SCH (14:00)
--- NOTE | 2019-08-21 14:06 | NUR ---
ADMINISTERED K LIQUID AND K RIDER IVPB. PT DENIES ANY HEART PALPITATIONS OR DISCOMFORT. WILL CONTINUE TO MONITOR
[2019-08-21 16:00] VITALS: BP 167/84
--- NOTE | 2019-08-21 16:06 | NUR ---
PATIENT IS RESTING QUIETLY IN BED. NO COMPLAINTS AT THIS TIME
--- NOTE | 2019-08-21 18:10 | NUR ---
ADMINISTERED PAIN MEDICATION FOR ARTHRITIS PAIN 05/02. WILL RE-ASSESS
[2019-08-21] MEDS: KETOROLAC 30 MG/ML VIAL IVP PRN (18:12)
--- NOTE | 2019-08-21 18:37 | NUR ---
ADMINISTERED CLINDAMYCIN DOSE LATE D/T K RIDER INFUSING. PATIENT IS RESTING IN BED, AWAKE. WILL ENDORSE TO THERAPY ADMINISTRATIVE ASSISTANT NURSE FOR CONTINUITY OF CARE.
--- NOTE | 2019-08-21 19:06 | NUR ---
RECEIVED PATIENT ON ROOM AIR, PULSE OX SAT 98%. PATIENT DENIES ANY SOB. PRN HHN NOT INDICATED AT THIS TIME. NO RESPIRATORY DISTRESS NOTED. WILL CONTINUE TO MONITOR.
--- NOTE | 2019-08-21 19:25 | NUR ---
REPORT RECEIVED FROM AM NURSE AT BEDSIDE. PT IN STABLE CONDITION. AAOX4. INTRODUCED SELF TO PT. BOARD UPDATED. NO COMPLAINTS OF PAIN. NO SOB. AFEBRILE. PT HAS NG TUBE IN PLACE DRAINING TO GRAVITY. PT IS AMBULATORY. IV SITE L AC 22G RUNNING NS@50ML/HR PATENT AND INTACT. SKIN WARM, DRY, AND NOT INTACT DUE TO SURGICAL WOUND S/P OPEN APPENDECTOMY. BED LOCKED IN LOW POSITION. CALL DOAN WITHIN REACH. SAFETY PRECAUTION IN PLACE. ALL NEEDS MET AT THIS TIME.
--- NOTE | 2019-08-21 22:15 | NUR ---
CLEOCIN HUNG AND RUNNING. PT TOLERATING WELL.
[2019-08-21] MEDS ORDERED: DICYCLOMINE HCL LIQUID 20 MG, ALUMINUM HYD/MAG/SIMETHICONE 30 ML, LIDOCAINE VISCOUS 2% ... PO SCH ×3 (23:00)
--- NOTE | 2019-08-21 23:00 | NUR ---
PT COMPLAINS OF UNEASY FEELING AND FEELING BLOATED. GI COCKTAIL GIVEN PO. PT TOLERATED WELL.
[2019-08-22] VITALS: BP 143/71
--- NOTE | 2019-08-22 01:00 | NUR ---
PT SLEEPING COMFORTABLY BUT AROUSABLE. NO S/S OF DISTRESS NOTED. NO COMPLAINTS OF PAIN. NO SOB. AFEBRILE. WILL CONTINUE TO MONITOR.
--- NOTE | 2019-08-22 03:00 | NUR ---
PT SLEEPING COMFORTABLY BUT AROUSABLE. NO S/S OF DISTRESS NOTED. RESPIRATIONS EVEN, UNLABORED, AND WNL. WILL CONTINUE TO MONITOR.
--- NOTE | 2019-08-22 03:45 | NUR ---
OCCULT BLOOD TEST SENT TO LAB.
[2019-08-22] MEDS: NACL 0.9% 1,000 ML IV SCH (04:10)
--- NOTE | 2019-08-22 05:10 | NUR ---
PT SLEEPING COMFORTABLY BUT AROUSABLE. NO S/S OF DISTRESS NOTED. WILL CONTINUE TO MONITOR.
[2019-08-22] MEDS: CLINDAMYCIN 900 MG in DEXTROSE 5% 100 ML IV SCH ×3 (06:05→23:24)
--- NOTE | 2019-08-22 06:05 | NUR ---
CLEOCIN HUNG AND RUNNING. PT TOLERATED WELL.
--- NOTE | 2019-08-22 07:05 | NUR ---
RECEIVED REPORT FROM NIGHT RN. PT RESTING IN BED. AAOX4. NO S/S OF ACUTE DISTRESS. PT DENIES PAIN. IV SITE PATENT AND INTACT. DRESSING DRY WITH MINIMAL OLD DRAINAGE PRESENT. CALL LIGHT WITHIN REACH. SAFETY MEASURES ENSURED. WILL CONTINUE TO MONITOR.
[2019-08-22 07:10] LABS: BASOPHILS % (AUTO) 0.1 % (0.0-2.0); EOSINOPHILS # (AUTO) 0.1 K/uL (0-0.4); EOSINOPHILS % (AUTO) 0.4 % (0.0-4.0); HEMATOCRIT 34.9 % (36-48); HEMOGLOBIN 11.3 g/dL (12.0-16.0); LYMPHOCYTES # (AUTO) 1.5 K/uL (2.5-16.5); LYMPHOCYTES % (AUTO) 11.9 % (20.5-51.1); MEAN CORPUSCULAR HEMOGLOBIN 26 pg (27-31); MEAN CORPUSCULAR HGB CONC 32 g/dL (33-37); MEAN CORPUSCULAR VOLUME 81.4 fL (80-94); MONOCYTES # (AUTO) 1.7 K/uL (0.8-1.0); MONOCYTES % (AUTO) 13.3 % (1.7-9.3); NEUTROPHILS # (AUTO) 9.5 K/uL (1.8-7.7); NEUTROPHILS % (AUTO) 74.3 % (42.2-75.2); PLATELET COUNT (AUTO) 290 K/uL (140-450); RED BLOOD CELL COUNT(AUTO) 4.29 MIL/uL (4.20-5.40); RED CELL DISTRIBUTION WIDTH 15.8 % (11.6-13.7); WHITE BLOOD COUNT (AUTO) 12.8 K/uL (4.8-10.8)
[2019-08-22 07:16] LABS: ANION GAP 10.3 (8-16); CARBON DIOXIDE 28.8 mmol/L (21-32); CHLORIDE 103 mmol/L (98-107); CREATININE 0.6 mg/dL (0.6-1.3); GLUCOSE 124 mg/dL (74-106); POTASSIUM 3.1 mmol/L (3.5-5.1); SODIUM SERUM 139 mmol/L (136-145); UREA NITROGEN, BLOOD 13 mg/dL (7-18)
[2019-08-22 07:28] LABS: MAGNESIUM 1.5 mg/dL (1.8-2.4)
[2019-08-22 08:00] VITALS: BP 135/69
[2019-08-22] MEDS: LACTOBACILLUS RHAMNOSUS GG 1 EACH CAP PO SCH (08:53)
[2019-08-22] MEDS: cefTRIAXone 2,000 MG in DEXTROSE 5% 100 ML IV SCH (08:53)
--- NOTE | 2019-08-22 12:15 | NUR ---
PATIENT RESTING IN BED. NO S/S OF ACUTE DISTRESS. PT DENIES PAIN. IV SITE PATENT AND INTACT. CALL LIGHT WITHIN REACH. SAFETY MEASURES ENSURED. WILL CONTINUE TO MONITOR
[2019-08-22 16:00] VITALS: BP 149/63
--- NOTE | 2019-08-22 16:18 | NUR ---
PATIENT SLEEPING IN BED. NO S/S OF ACUTE DISTRESS. PT DENIES PAIN. CALL LIGHT WITHIN REACH. SAFETY MEASURES ENSURED. WILL CONTINUE TO MONITOR.
[2019-08-22] MEDS ORDERED: MAG SULF 2000 MG/WATER PREMIX 50 ML IV SCH (17:00)
--- NOTE | 2019-08-22 17:09 | NUR ---
08/22/19 RD INITIAL ASSESSMENT COMPLETED PLEASE REFER TO NUTRITION ASSESSMENT UNDER CARE ACTIVITY FOR ESTIMATED NUTRITIONAL NEEDS. CONTINUE CLEAR LIQUID DIET TOLERATED IF/WHEN PT IS MEDICALLY STABLE TO BEGIN NUTRITION, CONSIDER TO ADVANCE DIET TOLERATED TO REGULAR DIET 3. RECOMMEND ENSURE CLEAR BID 4. RD TO FOLLOW-UP 2-3 DAYS, HIGH RISK JOANIE MENDEZ RD
--- NOTE | 2019-08-22 19:30 | NUR ---
ASSUMED CARE OF PATIENT, AWAKE, ALERT AND ORIENTED. ASSISTED TO BRP. NO COMPLAINS. CALL LIGHT WITHIN REACH. VITAL SIGNS STABLE.
[2019-08-22] MEDS ORDERED: POTASSIUM CHLORIDE 40 MEQ, LIDOCAINE MPF 1% 25 MG in NACL 0.9% 250 ML IV SCH (20:00)
--- NOTE | 2019-08-22 20:00 | NUR ---
VITAL SIGNS STABLE. NO COMPLAINS. HAVING LOOSE BM. PLAN OF CARE DISCUSSED WITH PATIENT, VERBALIZE UNDERSTANDING WELL. CALL LIGHT WITHIN REACH.
[2019-08-22 23:44] VITALS: BP 124/74
--- NOTE | 2019-08-22 23:45 | NUR ---
ASSISTED TO BRP. ASLEEP NO COMPLAINS. CALL LIGHT WITHIN REACH.
[2019-08-23] MEDS: NACL 0.9% 1,000 ML IV SCH ×2 (00:02→20:02)
[2019-08-23] MEDS ORDERED: POTASSIUM PHOSPHATE 15 MM in NACL 0.9% 250 ML IV SCH (01:00)
--- NOTE | 2019-08-23 02:00 | NUR ---
ASLEEP. NO COMPLAINS. CALL LIGHT WITHIN REACH.
--- NOTE | 2019-08-23 04:00 | NUR ---
ASLEEP. NO COMPLAINS. CALL LIGHT WITHIN REACH.
[2019-08-23 06:08] LABS: CARBON DIOXIDE 28.7 mmol/L (21-32); CHLORIDE 101 mmol/L (98-107); CREATININE 0.6 mg/dL (0.6-1.3); GLUCOSE 105 mg/dL (74-106); POTASSIUM 3.7 mmol/L (3.5-5.1); SODIUM SERUM 137 mmol/L (136-145); UREA NITROGEN, BLOOD 6 mg/dL (7-18)
[2019-08-23 06:13] LABS: MAGNESIUM 1.8 mg/dL (1.8-2.4)
[2019-08-23 06:38] LABS: BASOPHILS % (AUTO) 0.1 % (0.0-2.0); EOSINOPHILS # (AUTO) 0.1 K/uL (0-0.4); EOSINOPHILS % (AUTO) 0.7 % (0.0-4.0); HEMATOCRIT 35.3 % (36-48); HEMOGLOBIN 11.3 g/dL (12.0-16.0); LYMPHOCYTES # (AUTO) 1.4 K/uL (2.5-16.5); LYMPHOCYTES % (AUTO) 11.2 % (20.5-51.1); MEAN CORPUSCULAR HEMOGLOBIN 26 pg (27-31); MEAN CORPUSCULAR HGB CONC 32 g/dL (33-37); MEAN CORPUSCULAR VOLUME 82.2 fL (80-94); MONOCYTES # (AUTO) 1.1 K/uL (0.8-1.0); MONOCYTES % (AUTO) 8.6 % (1.7-9.3); NEUTROPHILS # (AUTO) 10.2 K/uL (1.8-7.7); NEUTROPHILS % (AUTO) 79.4 % (42.2-75.2); PLATELET COUNT (AUTO) 325 K/uL (140-450); RED BLOOD CELL COUNT(AUTO) 4.29 MIL/uL (4.20-5.40); WHITE BLOOD COUNT (AUTO) 12.9 K/uL (4.8-10.8)
[2019-08-23] MEDS: CLINDAMYCIN 900 MG in DEXTROSE 5% 100 ML IV SCH ×3 (06:51→23:00)
--- NOTE | 2019-08-23 07:16 | NUR ---
ENDORSED CARE AT BEDSIDE WITH STONEY RN, PATIENT IN STABLE CONDITION.
--- NOTE | 2019-08-23 07:17 | NUR ---
RECEIVED BEDSIDE REPORT FROM LAUNCH STEWARD NURSE. PATIENT IS AWAKE, ALERT AND ORIENTEDX4. NO SIGNS OF DISTRESS ON RA. SKIN HAS SURGICAL WOUND ON ABD, CLEAN AND DRY. IV ON R AC 20G NS AT 50. CLEAN, DRY AND INTACT. PATIENT IS AMBULATORY. CONTINENT. ABLE TO MAKE NEEDS KNOWN. BED IN LOW POSITION. CALL LIGHT WITHIN REACH. WILL CONTINUE TO MONITOR
[2019-08-23 07:55] LABS: PHOSPHORUS 3.6 mg/dL (2.5-4.9)
[2019-08-23 08:00] VITALS: BP 136/69
[2019-08-23] MEDS: LACTOBACILLUS RHAMNOSUS GG 1 EACH CAP PO SCH (08:52)
[2019-08-23] MEDS: cefTRIAXone 2,000 MG in DEXTROSE 5% 100 ML IV SCH (08:53)
--- NOTE | 2019-08-23 08:54 | NUR ---
ADMINISTERED MEDS. PATIENT TOLERATES WELL. EDUCATED ON SIDE EFFECTS. WILL CONTINUE TO MONITOR THE PATIENT.
[2019-08-23] MEDS ORDERED: METOCLOPRAMIDE 10 MG/2 ML INJ VIAL IVP PRN (09:45)
--- NOTE | 2019-08-23 10:00 | NUR ---
PATIENT SITTING IN BED. NO SIGNS OF DISTRESS. WILL CONTINUE TO MONITOR
--- NOTE | 2019-08-23 12:00 | NUR ---
PATIENT DIET CHANGED TO SOFT DIET
[2019-08-23] MEDS ORDERED: HYDROcodone/APAP 5/325 MG 1 TAB TAB PO PRN (12:25)
[2019-08-23] MEDS ORDERED: MORPHINE SULFATE 2 MG/ML SYR IVP PRN (12:25)
--- NOTE | 2019-08-23 14:00 | NUR ---
PATIENT TOLERATED SOFT DIET WELL.
--- NOTE | 2019-08-23 15:44 | NUR ---
ADMINISTERED MEDS. EDUCATED ON SIDE EFFECTS. WILL CONTINUE TO MONITOR
[2019-08-23 16:00] VITALS: BP 149/70
--- NOTE | 2019-08-23 17:00 | NUR ---
GAVE BEDSIDE REPORT TO HAND WOOD SANDER NURSE. PATIENT ENDORSED IN STABLE CONDITION
--- NOTE | 2019-08-23 19:26 | NUR ---
GAVE BEDSIDE REPORT TO HOME CARE SPECIALIST NURSE. PATIENT ENDORSED IN STABLE CONDITION
--- NOTE | 2019-08-23 19:30 | NUR ---
RECEIVED REPORT AT BEDSIDE FOR CONTINUITY OF CARE, PT IN STABLE CONDITION.
--- NOTE | 2019-08-23 20:00 | NUR ---
PT IN LOW BED WITH SIDE RAILS UP X2 AND CALL DOAN IN REACH.V/S FOLLOWS T 97.8 P 75 R 18 B/P 137/92 02 97% ON ROOM AIR. PT DENIES PAIN AT THIS TIME. NO S/S OF PAIN OR DISTRESS NOTED AND CALL DOAN IN REACH.
--- NOTE | 2019-08-23 20:07 | NUR ---
RECEIVED PATIENT ON ROOM AIR, PULSE OX SAT 98%. PATIENT DENIES SOB. PRN HHN NOT INDICATED AT THIS TIME. NO ACUTE RESPIRATORY DISTRESS NOTED. WILL CONTINUE TO MONITOR.
[2019-08-23] MEDS: KETOROLAC 30 MG/ML VIAL IVP PRN (23:46)
[2019-08-24] VITALS: BP 121/46
--- NOTE | 2019-08-24 | NUR ---
PT IN LOW BED WITH SIDE RAILS UP X2 PT IS AOX4, V/S FOLLOWS T 97.4 P 78 R 18 B/P 121/46 02 96% ON ROOM AIR. PT C/O 6/10 PAIN IN ABDOMEN. DRESSING CHANGED AREA HAS 4 ERMA INTACT NO S/S OF INFECTION OR DRAINAGE NOTED. PT GIVEN TORADOL IVP FOR PAIN RELIEF. IV ABT CLEOCIN HUNG AND IS RUNNING AT 100MLS/HR ORDERED.
[2019-08-24] MEDS: CLINDAMYCIN 900 MG in DEXTROSE 5% 100 ML IV SCH ×3 (06:36→23:23)
[2019-08-24 06:47] LABS: ANION GAP 11.5 (8-16); CARBON DIOXIDE 27.2 mmol/L (21-32); CHLORIDE 102 mmol/L (98-107); CREATININE 0.8 mg/dL (0.6-1.3); GLUCOSE 111 mg/dL (74-106); POTASSIUM 3.7 mmol/L (3.5-5.1); SODIUM SERUM 137 mmol/L (136-145); UREA NITROGEN, BLOOD 9 mg/dL (7-18)
[2019-08-24 06:56] LABS: MAGNESIUM 1.4 mg/dL (1.8-2.4); PHOSPHORUS 3.5 mg/dL (2.5-4.9)
[2019-08-24 07:08] LABS: BASOPHILS # (AUTO) 0.1 K/uL (0.00-0.22); BASOPHILS % (AUTO) 0.4 % (0.0-2.0); EOSINOPHILS # (AUTO) 0.1 K/uL (0-0.4); EOSINOPHILS % (AUTO) 0.9 % (0.0-4.0); HEMATOCRIT 33.7 % (36-48); HEMOGLOBIN 10.8 g/dL (12.0-16.0); LYMPHOCYTES # (AUTO) 1.9 K/uL (2.5-16.5); LYMPHOCYTES % (AUTO) 13.8 % (20.5-51.1); MEAN CORPUSCULAR HEMOGLOBIN 27 pg (27-31); MEAN CORPUSCULAR HGB CONC 32 g/dL (33-37); MEAN CORPUSCULAR VOLUME 82.6 fL (80-94); MONOCYTES % (AUTO) 7.3 % (1.7-9.3); NEUTROPHILS # (AUTO) 10.8 K/uL (1.8-7.7); NEUTROPHILS % (AUTO) 77.6 % (42.2-75.2); PLATELET COUNT (AUTO) 341 K/uL (140-450); RED BLOOD CELL COUNT(AUTO) 4.08 MIL/uL (4.20-5.40); RED CELL DISTRIBUTION WIDTH 15.9 % (11.6-13.7); WHITE BLOOD COUNT (AUTO) 13.9 K/uL (4.8-10.8)
[2019-08-24 08:00] VITALS: BP 128/62
[2019-08-24] MEDS: cefTRIAXone 2,000 MG in DEXTROSE 5% 100 ML IV SCH (09:25)
[2019-08-24] MEDS ORDERED: MAGNESIUM OXIDE 400 MG TAB PO SCH (10:00)
[2019-08-24] MEDS: LACTOBACILLUS RHAMNOSUS GG 1 EACH CAP PO SCH (11:48)
--- NOTE | 2019-08-24 14:01 | NUR ---
08/24/19 RD FOLLOW UP COMPLETED PLEASE REFER TO NUTRITION ASSESSMENT UNDER CARE ACTIVITY FOR ESTIMATED NUTRITIONAL NEEDS. 1. CONTINUE REGULAR DIET TOLERATED 2. RD TO FOLLOW-UP 3-5 DAYS, MODERATE RISK JOANIE MENDEZ RD
--- NOTE | 2019-08-24 19:35 | NUR ---
RECEIVED PATIENT FROM REGISTRY NURSE. PATIENT IS AOX3, ROOM AIR, BREATHING IS UNLABORED AND EVEN, IV R. AC 20G INTACT AND PATENT, SKIN HAS A SURGICAL INCISION ON ABDOMEN, COVERED WITH DRESSING, DRY AND CLEAN, AMBULATORY, CONTINENT, ABLE TO MAKE NEEDS KNOWN, BED ON LOW POSITION, CALL LIGHT WITHIN REACH, WILL CONTINUE TO MONITOR.
[2019-08-24] MEDS: NACL 0.9% 1,000 ML IV SCH (20:02)
--- NOTE | 2019-08-24 20:38 | NUR ---
DR. MANDUJANO,RESIDENT MADE AWARE ABOUT THE C/O PT FRESH BLOOD STREAKS ON THE WIPES AFTER SHE USED THE BATHROOM. WILL COLLECT STOOL FOR OB.PT MADE AWARE . SPECIMEN CONTAINER PROVIDED.
--- NOTE | 2019-08-24 23:00 | NUR ---
STILL AWAKE. WATCHING TV. NO C/O ANY PAIN. WILL GIVE DUE ANTIBIOTICS .
[2019-08-25 00:15] VITALS: BP 136/66
--- NOTE | 2019-08-25 00:15 | NUR ---
MADE ROUNDS. VITAL SIGNS STABLE. NO C/O OF ANY DISCOMFORT NOR PAIN. WILL CONTINUE TO MONITOR.
--- NOTE | 2019-08-25 02:34 | NUR ---
PATIENT IS SLEEPING, NO SIGNS OF DISTRESS NOTED, BED ON LOW POSITION, CALL LIGHT WITHIN REACH, WILL CONTINUE TO MONITOR.
--- NOTE | 2019-08-25 03:50 | NUR ---
PT HAS BEEN UP TO BATHROOM BY SELF. NO C/O ANY DISCOMFORT NOR PAIN NOTED.
--- NOTE | 2019-08-25 05:00 | NUR ---
IV SITE SWOLLEN . STOPPED IVF INFUSION. BUT PT REFUSED TO HAVE NEW IV ACCESS STARTED AT THIS TIME. WILL TRY LATER.
[2019-08-25 06:17] LABS: ANION GAP 10.4 (8-16); CARBON DIOXIDE 27.3 mmol/L (21-32); CHLORIDE 104 mmol/L (98-107); CREATININE 0.7 mg/dL (0.6-1.3); GLUCOSE 96 mg/dL (74-106); POTASSIUM 3.7 mmol/L (3.5-5.1); SODIUM SERUM 138 mmol/L (136-145); UREA NITROGEN, BLOOD 9 mg/dL (7-18)
[2019-08-25 06:22] LABS: MAGNESIUM 1.3 mg/dL (1.8-2.4); PHOSPHORUS 2.9 mg/dL (2.5-4.9)
[2019-08-25 06:39] LABS: BASOPHILS % (AUTO) 0.2 % (0.0-2.0); EOSINOPHILS # (AUTO) 0.1 K/uL (0-0.4); EOSINOPHILS % (AUTO) 0.7 % (0.0-4.0); HEMATOCRIT 33.9 % (36-48); HEMOGLOBIN 10.8 g/dL (12.0-16.0); LYMPHOCYTES # (AUTO) 1.9 K/uL (2.5-16.5); LYMPHOCYTES % (AUTO) 13.7 % (20.5-51.1); MEAN CORPUSCULAR HEMOGLOBIN 26 pg (27-31); MEAN CORPUSCULAR HGB CONC 32 g/dL (33-37); MEAN CORPUSCULAR VOLUME 81.6 fL (80-94); MONOCYTES # (AUTO) 0.9 K/uL (0.8-1.0); MONOCYTES % (AUTO) 6.4 % (1.7-9.3); NEUTROPHILS # (AUTO) 10.8 K/uL (1.8-7.7); PLATELET COUNT (AUTO) 409 K/uL (140-450); RED BLOOD CELL COUNT(AUTO) 4.16 MIL/uL (4.20-5.40); RED CELL DISTRIBUTION WIDTH 15.8 % (11.6-13.7); WHITE BLOOD COUNT (AUTO) 13.7 K/uL (4.8-10.8)
[2019-08-25] MEDS: CLINDAMYCIN 900 MG in DEXTROSE 5% 100 ML IV SCH (07:00)
--- NOTE | 2019-08-25 07:10 | NUR ---
IV ACCESS ON THE RT AC #20. DC'D. TRIED TO START A NEW IV ACCESS BUT UNABLE X3. . CLEOCIN IVPB NOT YET GIVEN. WILL ENDORSE TO AM NURSE.
--- NOTE | 2019-08-25 07:22 | NUR ---
STOOL COLLECTED FOR STOOL OB. SENT TO LAB. ENDORSED PT IN STABLE CONDITION TO AM NURSE FOR CONTINUITY OF CARE.
--- NOTE | 2019-08-25 07:23 | NUR ---
RECEIVED ENDORSEMENT FROM GLUCOSE AND SYRUP WEIGHER NURSE. PATIENT IS AAOX4, SURINAMESE SPEAKING. RESPIRATIONS ARE EVEN AND UNLABORED ON ROOM AIR. PATIENT DENIES ANY PAIN AT THIS TIME. NO IV ACCESS AT THIS TIME. PLAN OF CARE WAS REVIEWED WITH PATIENT,PATIENT VERBALIZED UNDERSTANDING. SAFETY MEASURES IN PLACE, CALL LIGHT WITHIN REACH.
[2019-08-25 08:00] VITALS: BP 157/69
[2019-08-25] MEDS ORDERED: MAG SULF 2000 MG/WATER PREMIX 100 ML IV SCH (08:00)
[2019-08-25] MEDS ORDERED: KETOROLAC 30 MG/ML VIAL IVP PRN (08:15)
--- NOTE | 2019-08-25 09:30 | NUR ---
IV ACCESS OBTAINED. LEFT HAND 22G IV. ADMINISTERED SCHEDULED IV ABX. DENIES PAIN AT THIS TIME. NO OTHER NEEDS AT THIS TIME, WILL CONTINUE TO MONITOR.
[2019-08-25] MEDS ORDERED: MAGNESIUM OXIDE 400 MG TAB PO SCH (10:30)
[2019-08-25] MEDS: LACTOBACILLUS RHAMNOSUS GG 1 EACH CAP PO SCH (10:35)
[2019-08-25] MEDS: cefTRIAXone 2,000 MG in DEXTROSE 5% 100 ML IV SCH (10:37)
--- NOTE | 2019-08-25 10:37 | NUR ---
ADMINISTERED SCHEDULED MEDICATIONS. PATIENT TOLERATED WELL. NO OTHER NEEDS AT THIS TIME, WILL CONTINUE TO MONITOR.
--- NOTE | 2019-08-25 12:18 | NUR ---
PATIENT SLEEPING, VISIBLE RISE AND FALL OF CHEST. NO OTHER NEEDS AT THIS TIME, WILL CONTINUE TO MONITOR.
--- NOTE | 2019-08-25 14:30 | NUR ---
ADMINISTERED SCHEDULED MEDICATIONS. PATIENT TOLERATED WELL. NO OTHER NEEDS AT THIS TIME, WILL CONTINUE TO MONITOR. Addendum: 08/25/19 at 1449 by Alma Lee RN WRONG ENTRY. WOUND CARE DONE. PICTURE OBTAINED. PATIENT TOLERATED WELL. NO OTHER NEEDS AT THIS TIME.
--- NOTE | 2019-08-25 15:15 | NUR ---
PATIENT AMBULATED TO RESTROOM WITH STEADY GAIT. NO OTHER NEEDS AT THIS TIME, WILL CONTINUE TO MONITOR.
[2019-08-25] MEDS ORDERED: TOR15I PO (15:16)
[2019-08-25 16:00] VITALS: BP 150/75
[2019-08-25] MEDS ORDERED: KETO10TA2 PO ×2 (16:02→16:05)
--- NOTE | 2019-08-25 16:50 | NUR ---
DISCHARGE INSTRUCTIONS PROVIDED, PATIENT VERBALIZED UNDERSTANDING. ALL QUESTIONS AND CONCERNS ADDRESSED. IV WAS REMOVED, CANNULA INTACT WITH MINIMAL BLEEDING. PATIENT TO BE DISCHARGED HOME, WAITING FOR DAUGHTER TO PICK HER UP. NO OTHER NEEDS AT THIS TIME.
--- NOTE | 2019-08-25 17:15 | NUR ---
PATIENT SITTING IN BED, READY TO GO HOME. STILL PENDING RIDE HOME TO ARRIVE A 6PM. NO OTHER NEEDS AT THIS TIME.
--- NOTE | 2019-08-25 18:19 | NUR ---
PATIENT AMBULATED OFF UNIT WITH STEADY GAIT. ID BAND WAS REMOVED. ALL BELONGINGS LEFT WITH PATIENT. PATIENT IS STABLE AT THIS TIME.
== END 2019-08-25 18:50 | disposition home or self-care (01) | DRG 853 ==
LOC: EDBD 04:37 → MED 04:37 → MMU 10:15
PROVIDERS: ADMIT General Practice; ATTEND General Practice
PROC: 0UB70ZZ Excision of Bilateral Fallopian Tubes, Open Approach (ICD-10-PCS; 2019-08-17)
PROC: 0DNH0ZZ Release Cecum, Open Approach (ICD-10-PCS; 2019-08-17)
PROC: 0UB20ZZ Excision of Bilateral Ovaries, Open Approach (ICD-10-PCS; principal; 2019-08-17 11:00)
DX: A41.9 Sepsis, unspecified organism (principal); J18.9 Pneumonia, unspecified organism; K35.32 Acute appendicitis with perforation, localized peritonitis, and gangrene, without abscess; E87.1 Hypo-osmolality and hyponatremia; E44.0 Moderate protein-calorie malnutrition; K56.7 Ileus, unspecified; K62.5 Hemorrhage of anus and rectum; Z68.23 Body mass index [BMI] 23.0-23.9, adult; N70.93 Salpingitis and oophoritis, unspecified; E83.42 Hypomagnesemia; F17.210 Nicotine dependence, cigarettes, uncomplicated; E86.0 Dehydration; E83.39 Other disorders of phosphorus metabolism; E87.6 Hypokalemia; Z90.710 Acquired absence of both cervix and uterus; Z88.0 Allergy status to penicillin; Z82.3 Family history of stroke; Z82.49 Family history of ischemic heart disease and other diseases of the circulatory system; Z71.6 Tobacco abuse counseling; Z30.2 Encounter for sterilization
CPT/HCPCS: 36415; 71045; 73562; 74018; 74250; 80048; 80053; 80305; 81001; 82150; 82272; 83036; 83605; 83615; 83690; 83735; 83880; 84100; 84443; 84484; 85025; 85610; 85730; 87040; 87081; 87086; 88304; 93005; 96361; 96365; 96367; 96375; 99285; J0330; J0692; J0696; J1100; J1885; J2001; J2270; J2405; J2704; J2710; J3010; J3370; J3475; J3480; J3490; J7030; J7060; J7620; Q0092; Q9967

== ENCOUNTER 2023-11-30 21:21 | Emergency (ER) | payer BC ==
[~2023-11-30] VITALS: Ht 160 cm; Wt 64.9 kg
[~2023-11-30 21:21] MED LIST: KETO10TA2 PO
[2023-11-30 21:29] VITALS: BP 162/86; PULSE 78; RESP 16; TEMP 98; O2SAT 100
== END 2023-11-30 22:58 | disposition left against medical advice (07) ==
LOC: MED 21:21
DX: R42 Dizziness and giddiness (principal); Z53.21 Procedure and treatment not carried out due to patient leaving prior to being seen by health care provider
CPT/HCPCS: 99281